=== PATIENT | male | born 1960 | race Caucasian/White ===

== ENCOUNTER → 2017-03-28 | Outpatient (CLI) | payer BC ==
--- NOTE | 2017-03-28 11:46 | EST ---
DATE OF SERVICE: 03/28/2017 AGE: 57Y SEX: M HT: 6y8 WT: 150 lbs. Protocol Dmitriy: X Other: Stage: III Dur. of Exercise: 9 minutes *Heart Rate Blood Pressure *Rest: 92 Rest: 138/89 * *Max. Achieved: 140 Maximum BP: 152/89 85% PMHR: 138 100% PMHR: 162 *METS: 10.0 INDICATION OF THE STUDY: Chest pain. MEDICATIONS: Ventolin, Synthroid. Pretesting physical examination showed a heart rate of 92, pressure is 138/89 mmHg. Baseline EKG showed sinus rhythm. The patient exercised on treadmill according to Dmitriy protocol for a total of 9 minutes and achieved 10.0 METs. Max heart rate was 140 beats per minute, which is about 85% of maximum predicted heart rate. Maximum blood pressure was 152/89 mmHg. Clinically, the patient did not have any symptoms of chest pain or chest discomfort during the testing or in the recovery time. The EKG showed [address] segment changes on recovery. CONCLUSION: 1. Excellent exercise capacity. 2. Mildly abnormal EKG in response to exercise.
== END | disposition home or self-care (01) ==
LOC: RADNMMAIN 10:44
PROVIDERS: ATTEND Family Medicine
DX: R94.31 Abnormal electrocardiogram [ECG] [EKG] (principal); Z82.49 Family history of ischemic heart disease and other diseases of the circulatory system
CPT/HCPCS: 93017

== ENCOUNTER → 2017-04-13 | Outpatient (CLI) | payer BC ==
--- NOTE | 2017-04-13 11:22 | NM ---
EXAMINATION TYPE: NM stress cardiolite complete DATE OF EXAM: 04/13/2017 COMPARISON: NONE HISTORY: Abnormal stress test TECHNIQUE: After the intravenous administration of 10.6 mCi Tc 99m Sestamibi - Rest images obtained 48 minutes post injection. The patient exercised using a JOHAN protocol and 1 minute prior to peak exercise was injected with 27.1 mCi Tc 99m Sestamibi - Stress images obtained 10 minutes post injecti on. FINDINGS: Targeted heart rate was achieved during performance of the study. Review of stress and rest SPECT jac ges demonstrates no distinct perfusion abnormality however, cannot exclude a small area of reversibil ity involving the inferior septum. Gated analysis shows normal wall motion with an estimated left ve ntricular ejection fraction of 68 %. IMPRESSION: Cannot exclude a small area of stress-induced reversibility involving the myocardial inferior septum. Correlate clinically.
--- NOTE | 2017-04-13 12:26 | EST ---
DATE OF SERVICE: 04/13/2017 AGE: 57Y SEX: M HT: 5'8" WT: 113 lbs. Protocol Dmitriy: X Other: Cardiolite Stage: III Dur. of Exercise: 9 minutes *Heart Rate Blood Pressure *Rest: 52 Rest: 117/81 * *Max. Achieved: 139 Maximum BP: 183/95 85% PMHR: 138 100% PMHR: 162 *METS: 10.5 INDICATIONS: MEDICATIONS: Patient was exercised for a total period of 9 minutes. The peak heart rate of 139 was achieved. Maximum blood pressure of 183/95 mmHg was noted. EKG shows normal sinus rhythm with normal CA interval and QRS duration and normal ST-T waves. ( ) exercise and about [address] segment depression is noted in the inferolateral leads. ( ) reached the baseline within 2 minutes in the postexercise period. Patient did not complain of any chest pain during the test. FINAL IMPRESSION: 1. This exercise test shows a [address] segment depression at the peak exercise which normalized within 2 minutes in the recovery period. This is suggestive of stress-induced ischemia. Clinical correlation is suggested as well as correlation with the nuclear study is suggested. 2. Did not complain of any anginal pain during the test. 3. Patient's exercise tolerance is normal.
== END | disposition home or self-care (01) ==
LOC: RADNMMAIN 07:51
PROVIDERS: ATTEND Family Medicine
DX: R07.9 Chest pain, unspecified (principal); R94.39 Abnormal result of other cardiovascular function study
CPT/HCPCS: 93017; 78452; A9500

== ENCOUNTER → 2017-05-04 | Day surgery (SDC) | payer BC ==
[2017-05-02 10:11] VITALS: BMI 23.4
[~2017-05-04] MED LIST: ALPRAZolam 0.25 MG TAB PO PRN; ALPRAZolam 0.5 MG TAB PO PRN; ASPIRIN 325 MG TAB PO STA; ATORVASTATIN 80 MG TAB PO STA; IOHEXOL 350 MG/ML 125ML BOTTLE INJ ONE; ISOSORBIDE MONONITRATE ER 30 MG TAB.ER.24H PO SCH; LEVOTHYROXINE 75 MCG TAB PO SCH; LIDOCAINE 2% INJ 20 MG/ML SQ ONE; METOPROLOL TARTRATE 25 MG TAB PO SCH; MIDAZOLAM 2 MG/2 ML VIAL IVP ONE; NITROGLYCERIN SL TABS 0.4 MG TAB SUBLINGUAL PRN; RX INFO: IV CONTRAST WAS GIVEN 1 EACH MISC MISCELLANE PRN; SODIUM CHLORIDE 0.9% 1,000 ML IV SCH; SODIUM CHLORIDE 0.9% 1,000 ML in EMPTY BAG 1 BAG IV ONE; VARENICLINE 1 MG TAB PO SCH; diphenhydrAMINE 50 MG/ML 1 ML VIAL IVP ONE
[2017-05-04 06:55] VITALS: TEMP 98.7
--- NOTE | 2017-05-04 08:38 | P.PCN ---
Date of Procedure: 05/04/17 Preoperative Diagnosis: Angina and positive stress test Postoperative Diagnosis: Significant disease in the circumflex Procedure(s) Performed: Left heart catheterization without left ventriculography Implants: Indications for Procedure: Operative Findings: Description of Procedure: HISTORY: As is a 57-year-old gentleman with strong family history of ischemic heart disease and smoking who was recently evaluated by stress test because of chest pains. This showed mildly ischemic changes on the EKG and evidence of reversible ischemia involving the inferolateral segments. Patient is advised to have cardiac catheterization. CONSENT:I have discussed the risks, benefits and alternative therapies for the above-mentioned procedure and for both sedation/analgesia as well as necessary blood product administration, if indicated, as they pertain to this patient. The patient has indicated understanding and acceptance of the risks and procedures discussed. CHEST SEDATION: The duration of the conscious sedation is about 25 minutes. PROCEDURE: Patient was brought to the lab in a fasting state. Patient was given some IV sedation. The right groin is infiltrated with lidocaine and right femoral artery was entered using Seldinger technique. A 6-Cambodian catheter was left in place and selective coronary arteriography was performed. Patient tolerated the procedure well. Femoral angiogram was performed and mannuel compression was applied for hemostasis. No immediate complications were noted and patient was transferred to [facility] in a stable condition. HEMODYNAMICS: Aortic pressure is 120/70. Left ankle end-diastolic pressure is about 8-12. SELECTIVE CORONARY ARTERIOGRAPHY: LEFT MAIN: Normal length and patent. THE LEFT ANTERIOR DESCENDING CORONARY ARTERY: This is a dominant vessel, wrapping around the apex and supplying the inferoapical segment also. It gives rise good-sized first diagonal branch. The first diagonal branch has mild disease in the proximal portion. There is mild disease in mid LAD. THE LEFT CIRCUMFLEX AND IS CORONARY ARTERY: This is a moderate caliber vessel giving rise to good-sized OM branch. There is a mild ostial stenosis of the circumflex. There is about 70-80% eccentric stenosis of the circumflex before the origin of the OM branch. The disease may extend beyond the origin of the OM. The OM branch itself is free of any significant occlusive disease. THE RIGHT CORONARY ARTERY: Small and nondominant LEFT VENTRICULOGRAPHY: Not performed FINAL IMPRESSION: Critical lesion involving the circumflex in the proximal portion. There is also mild ostial stenosis of the circumflex. Mild disease involving the diagonal. LAD is free of any significant focal occlusive disease. Mild diffuse plaque and constipation noted. The right is nondominant. PLAN: Maximum medical therapy and stent placement of the circumflex. PROGNOSIS: Fair.
[2017-05-04 11:52] VITALS: RESP 16
[2017-05-04 14:36] VITALS: BP 122/79; PULSE 74
== END | disposition home or self-care (01) ==
LOC: CATHCVL 06:26
PROVIDERS: ATTEND Internal Medicine Cardiovascular Disease
DX: I25.118 Atherosclerotic heart disease of native coronary artery with other forms of angina pectoris (principal); F17.210 Nicotine dependence, cigarettes, uncomplicated; Z82.49 Family history of ischemic heart disease and other diseases of the circulatory system; Z79.899 Other long term (current) drug therapy
CPT/HCPCS: 93458; 99152; 99153; C1894; C1769; J2001; J2250; J1200; Q9967

== ENCOUNTER → 2017-08-09 | Outpatient (CLI) | payer OTHER ==
--- NOTE | 2017-08-09 10:07 | XR ---
EXAMINATION TYPE: XR ankle complete LT, XR foot complete LT DATE OF EXAM: 08/09/2017 CLINICAL HISTORY: Ankle pain after jumping injury. TECHNIQUE: Frontal, lateral and oblique images of the foot and left ankle are obtained. COMPARISON: None. FINDINGS: FINDINGS: There is no acute fracture/dislocation evident in the left ankle. The ankle mo rtise appears within normal limits. The overlying soft tissue appears unremarkable. There is no acut e fracture or dislocation evident in the left foot. The joint spaces in the left foot are preserved. Overlying soft tissue is unremarkable. Small Achilles and plantar enthesophytes are present. Incid ental note is made of a bipartite sesamoid. IMPRESSION: There is no acute fracture or dislocation in the left foot or ankle.
== END | disposition home or self-care (01) ==
LOC: RADXRMAIN 09:41
PROVIDERS: ATTEND Emergency Medicine
DX: S93.402A Sprain of unspecified ligament of left ankle, initial encounter (principal); S93.602A Unspecified sprain of left foot, initial encounter

== ENCOUNTER → 2017-08-31 | Outpatient (CLI) | payer OTHER ==
--- NOTE | 2017-09-01 00:29 | MR ---
EXAMINATION TYPE: MR ankle LT wo con DATE OF EXAM: 08/31/2017 COMPARISON: NONE HISTORY: Left ankle sprain Standard multiplanar, multisequence MRI departmental protocol Multiplanar, multisequence images of the left ankle were acquired. FINDINGS: There is a mild Achilles calcaneal spur. There is small plantar calcaneal spur. Plantar fas meliton appears normal. Achilles tendon is intact. The medial and lateral flexor tendons of the ankle artemio ear intact. There are small ankle joint effusion. There is no evidence of a fracture. I see no bony d estructive process. The collateral ligaments are intact. Joint spaces are fairly well-maintained. The re is minimal subcutaneous edema over the lateral aspect of the midfoot. IMPRESSION: No evidence of ligament or tendon tear. Mild calcaneal spurring. No fracture. Small ankle joint effusion consistent with mild synovitis. Mild subcutaneous edema.
== END | disposition home or self-care (01) ==
LOC: RADMRIMAIN 09:01
PROVIDERS: ATTEND Emergency Medicine
DX: M25.472 Effusion, left ankle (principal); M77.32 Calcaneal spur, left foot

== ENCOUNTER → 2018-01-11 | Outpatient (CLI) | payer OTHER ==
[2018-01-11 19:25] LABS: ALT 26 U/L (21-72); AST 22 U/L (17-59); Albumin 4.2 g/dL (3.5-5.0); Alkaline Phosphatase 75 U/L (38-126); Anion Gap 10 mmol/L; Blood Urea Nitrogen 22 mg/dL (9-20); Calcium 10.1 mg/dL (8.4-10.2); Carbon Dioxide 26 mmol/L (22-30); Chloride 105 mmol/L (98-107); Cholesterol 183 mg/dL (<200); Glucose 91 mg/dL (74-99); HDL Cholesterol 60 mg/dL (40-60); LDL Cholesterol,Calculated 88 mg/dL (0-99); Potassium 4.2 mmol/L (3.5-5.1); Sodium 141 mmol/L (137-145); Total Bilirubin 0.3 mg/dL (0.2-1.3); Total Protein 6.9 g/dL (6.3-8.2); Triglycerides 175 mg/dL (<150)
[2018-01-11 19:39] LABS: T4, Free (Free Thyroxine) 1.15 ng/dL (0.78-2.19)
[2018-01-11 19:53] LABS: PSA Annual Screen 1.37 ng/mL (0.00-4.00)
== END | disposition home or self-care (01) ==
LOC: MMGSC 16:25
PROVIDERS: ATTEND Family Medicine
DX: Z00.00 Encounter for general adult medical examination without abnormal findings (principal); E78.5 Hyperlipidemia, unspecified; Z12.5 Encounter for screening for malignant neoplasm of prostate
CPT/HCPCS: 84439; 80053; 80061; 84443; 36415; G0103

== ENCOUNTER 2020-05-06 10:42 | Day surgery (SDC) | payer BC ==
[2020-05-04 10:34] VITALS: BMI 23.1
[~2020-05-06 10:42] MED LIST changes: -IOHEXOL 350 MG/ML 125ML BOTTLE INJ ONE; -ISOSORBIDE MONONITRATE ER 30 MG TAB.ER.24H PO SCH; -LEVOTHYROXINE 75 MCG TAB PO SCH; -LIDOCAINE 2% INJ 20 MG/ML SQ ONE; -METOPROLOL TARTRATE 25 MG TAB PO SCH; -MIDAZOLAM 2 MG/2 ML VIAL IVP ONE; -RX INFO: IV CONTRAST WAS GIVEN 1 EACH MISC MISCELLANE PRN; -SODIUM CHLORIDE 0.9% 1,000 ML IV SCH; -VARENICLINE 1 MG TAB PO SCH; -diphenhydrAMINE 50 MG/ML 1 ML VIAL IVP ONE
[2020-05-06 11:22] VITALS: RESP 16; TEMP 98
[2020-05-06] MEDS ORDERED: SODIUM CHLORIDE 0.9% 1,000 ML IV ONE (11:22)
[2020-05-06] MEDS ORDERED: LIDOCAINE 1% INJ 10MG/ML (20 ML MDV) ONE (11:48)
[2020-05-06] MEDS ORDERED: fentaNYL (PF) 50 MCG/ML 2 ML AMP ONE (11:48)
[2020-05-06] MEDS ORDERED: VERAPAMIL 2.5 MG/ML 2 ML AMP ONE (11:56)
[2020-05-06] MEDS ORDERED: MIDAZOLAM 2 MG/2 ML VIAL IV ONE (12:02)
[2020-05-06] MEDS ORDERED: fentaNYL (PF) 50 MCG/ML 2 ML AMP IV ONE (12:02)
[2020-05-06] MEDS ORDERED: LIDOCAINE 1% INJ 10MG/ML (20 ML MDV) SQ ONE (12:04)
[2020-05-06] MEDS ORDERED: HEPARIN SODIUM 1,000 UN/ML (10ML VL) ONE (12:07)
[2020-05-06] MEDS ORDERED: VERAPAMIL SYRINGE (5 MG/10 ML) INTRAARTER ONE (12:08)
[2020-05-06] MEDS ORDERED: IOPAMIDOL-370 100ML BTL INJ ONE (12:23)
[2020-05-06] MEDS ORDERED: RX INFO: IV CONTRAST WAS GIVEN 1 EACH MISC MISCELLANE PRN (12:27)
[2020-05-06] MEDS ORDERED: SODIUM CHLORIDE 0.9% 1,000 ML IV SCH (12:30)
[2020-05-06 13:54] VITALS: PULSE 50
[2020-05-06 17:59] VITALS: BP 120/64
--- NOTE | 2020-05-27 07:31 | P.CARDCATH ---
Date of Procedure: 05/06/20 Preoperative Diagnosis: Chest pain and positive stress test Postoperative Diagnosis: Mild coronary artery disease Description of Procedure: HISTORY: This is a 60-year-old gentleman with history of hypertension and has been experiencing chest pain. A stress test was suggestive of ischemia involving the anterior and an old inferior wall. Patient is advised to have a cardiac catheterization for definitive diagnosis CONSENT:I have discussed the risks, benefits and alternative therapies for the above-mentioned procedure and for both sedation/analgesia as well as necessary blood product administration, if indicated, as they pertain to this patient. T he patient has indicated understanding and acceptance of the risks and procedures discussed. PROCEDURE: Patient was brought to the lab in a fasting state. Patient was given some IV sedation. The right wrist is infiltrated with lidocaine and right radial artery was entered using Seldinger technique. A 6-Georgian catheter was left in place and selective coronary arteriography was performed. Patient tolerated the procedure well . TR band was performed and Angio-Seal was applied for hemostasis. No immediate complications were noted and patient was transferred to [facility] in a stable condition Conscious Sedation: Versed 1mg Fentanyl 25 g Duration 21minutes HEMODYNAMICS: The aortic pressure is about 130/70. There was no gradient across the aortic valve SELECTIVE CORONARY ARTERIOGRAPHY: LEFT MAIN: Normal length with mild plaque and calcification but no significant focal disease THE LEFT ANTERIOR DESCENDING CORONARY ARTERY:. This is a good caliber vessel wrapping around the apex. Gives rise to very caliber first diagonal branch. First diagonal branch has about 40-50% stenosis near the ostium. The LAD has mild plaque diffusely but no physical lesions THE LEFT CIRCUMFLEX AND IS CORONARY ARTERY: This is a moderate caliber vessel giving rise good-sized OM branch. The circumflex coronary artery has mild plaque in the proximal and mid portions without any significant focal lesion THE RIGHT CORONARY ARTERY:. This is a small and nondominant vessel free of any significant focal lesions LEFT VENTRICULOGRAPHY: Not performed FINAL IMPRESSION:. Mild diffuse coronary artery disease with the diffuse calcification noted in the left coronary system. No significant focal lesions PLAN:. Continued medical therapy and this factor modification PROGNOSIS: Fair
== END 2020-05-06 17:48 | disposition home or self-care (01) ==
LOC: CATHCVL 10:42
PROVIDERS: ATTEND Internal Medicine Cardiovascular Disease
DX: I25.10 Atherosclerotic heart disease of native coronary artery without angina pectoris (principal); R94.39 Abnormal result of other cardiovascular function study; R07.9 Chest pain, unspecified; F17.200 Nicotine dependence, unspecified, uncomplicated; E03.9 Hypothyroidism, unspecified; E78.00 Pure hypercholesterolemia, unspecified; E78.5 Hyperlipidemia, unspecified; I10 Essential (primary) hypertension; I25.9 Chronic ischemic heart disease, unspecified; G89.29 Other chronic pain; Z79.890 Hormone replacement therapy; Z79.82 Long term (current) use of aspirin; Z79.899 Other long term (current) drug therapy; Z82.49 Family history of ischemic heart disease and other diseases of the circulatory system
CPT/HCPCS: 93454; C1769; C1894; J2250; J2001; J3010; J1644; Q9967